=== PATIENT | male | born 1965 | race African-American/Black ===

== ENCOUNTER 2017-01-20 10:05 | Outpatient (CLI) | payer OTHER ==
[2017-01-20 11:32] LABS: #Eosinphils 0.4 thou/uL (0.0-0.7); #Lymphocytes 2.4 thou/uL (1.20-3.40); #Monocytes 0.3 thou/uL (0.11-0.59); #Neutrophils 2.3 thou/uL (1.40-6.50); %Basophils 0.2 % (0.0-1.0); %Eosinophils 6.9 % (0.0-10.0); %Lymphocytes 44.1 % (21.0-51.0); %Monocytes 6.1 % (0.0-10.0); Hematocrit 45.6 % (42.0-52.0); Mean Platelet Volume 7.8 fL (7.4-10.4); Red Blood Cell (RBC) Count 4.99 mill/uL (4.70-6.10); White Blood Cell (WBC) Count 5.5 thou/uL (4.8-10.8)
[2017-01-20 11:48] LABS: Anion Gap 16 mmol/L (10-20); BUN (Urea Nitrogen) 17 mg/dL (8.9-20.6); Calc. Creatinine Clearance 0 mL/min (70-130); Calcium 9.8 mg/dL (7.8-10.44); Carbon Dioxide 22 mmol/L (22-29); Chloride 104 mmol/L (98-107); Estimated GFR-MDRD 74
--- NOTE | 2017-01-20 12:34 | RAD ---
RADIOGRAPH CHEST 2 VIEWS: Date: 01/20/17 Time: 1109 hours HISTORY: 51-year-old male with chest pain. FINDINGS: There is no air space density, pulmonary edema, pleural effusion, pneumothorax, or cardiomegaly. IMPRESSION: No acute cardiopulmonary findings. mela [] POS: [facility]
== END 2017-01-20 10:06 | disposition home or self-care (01) ==
LOC: LABBT 10:05
PROVIDERS: ATTEND Orthopaedic Surgery Hand Surgery
DX: Z01.818 Encounter for other preprocedural examination (principal); G56.32 Lesion of radial nerve, left upper limb; G83.9 Paralytic syndrome, unspecified
CPT/HCPCS: 71020; 80048; 85025; 93005; 93010

== ENCOUNTER 2017-09-11 11:37 | Outpatient (CLI) | payer OTHER ==
--- NOTE | 2017-09-11 12:38 | RAD ---
TWO VIEW LEFT HIP: Indication: Left hip pain. FINDINGS: There is mild osteoarthritis in the left hip without fracture or dislocation. IMPRESSION: Mild left hip joint osteoarthritis. POS: [facility]
--- NOTE | 2017-09-11 12:46 | RAD ---
FRONTAL VIEW PELVIS: Clinical history: Hip pain. FINDINGS: There is bilateral hip joint osteoarthritis, which is symmetric appearing. There is no acute osseous abnormality. Symphysis pubis is maintained. No significant abnormality of the sacroiliac joints. Ther e are soft tissue calcifications overlying the pelvis. Prominent region of heterotopic density is seen along the right lateral pelvic soft tissues. IMPRESSION: 1. No acute osseous abnormality of the pelvis. 2. Osteoarthritis, symmetric appearing, mild in degree and not significantly changed from a prior exam. POS: [facility]
--- NOTE | 2017-09-11 14:16 | RAD ---
TWO VIEWS RIGHT HIP: Date: 09-11-17 Comparison: 03-23-06 History: Hip injury. FINDINGS: Two views right hip demonstrate development of an area of heterotopic bone compatible with myositis o ssificans. This is lateral and slightly superior to the right hip joint. No other acute abnormalities seen. 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 POS: [facility]
== END 2017-09-11 11:38 | disposition home or self-care (01) ==
LOC: RAD 11:37
PROVIDERS: ATTEND Psychiatry & Neurology Neurology
DX: Z02.71 Encounter for disability determination (principal); M16.0 Bilateral primary osteoarthritis of hip
CPT/HCPCS: 72170

== ENCOUNTER 2017-11-08 09:28 | Outpatient (CLI) | payer OTHER | END 2017-11-08 09:29 | disposition home or self-care (01) | LOC: BICRAD 09:28 | PROVIDERS: ATTEND Family Medicine | DX: M54.10 Radiculopathy, site unspecified (principal) | CPT/HCPCS: 72100 ==

== ENCOUNTER 2019-06-05 19:30 | Outpatient (CLI) | payer OTHER | END 2019-06-05 19:31 | disposition home or self-care (01) | LOC: SLEEPLAB 19:30 | PROVIDERS: ATTEND Family Medicine | DX: G47.9 Sleep disorder, unspecified (principal); R53.83 Other fatigue; R06.83 Snoring; F32.9 Major depressive disorder, single episode, unspecified; E11.9 Type 2 diabetes mellitus without complications; I10 Essential (primary) hypertension; G47.33 Obstructive sleep apnea (adult) (pediatric) | CPT/HCPCS: 95811 ==

== ENCOUNTER 2019-09-22 18:37 | Emergency (ER) | payer OTHER ==
[2019-09-22] MEDS ORDERED: Cyclobenzaprine 10 MG TAB ONE (19:38)
== END 2019-09-22 20:24 | disposition home or self-care (01) ==
LOC: ERS 18:37
DX: S29.011A Strain of muscle and tendon of front wall of thorax, initial encounter (principal); E11.9 Type 2 diabetes mellitus without complications; I10 Essential (primary) hypertension; F31.9 Bipolar disorder, unspecified; F17.210 Nicotine dependence, cigarettes, uncomplicated; Z79.84 Long term (current) use of oral hypoglycemic drugs; X50.0XXA Overexertion from strenuous movement or load, initial encounter
CPT/HCPCS: 36416; 93005

== ENCOUNTER 2020-06-17 09:07 | Outpatient (CLI) | payer OTHER ==
--- NOTE | 2020-06-17 09:45 | RAD ---
EXAM: 4 views of the left elbow HISTORY: Elbow pain COMPARISON: None FINDINGS: A small elbow effusion is seen. There is no evidence of acute fracture or dislocation. No significant degenerative changes are seen. Mild diffuse soft tissue swelling is present. IMPRESSION: Small elbow effusion without obvious fracture.
--- NOTE | 2020-06-17 10:06 | RAD ---
Exam:3 views right thumb HISTORY: Pain COMPARISON: None FINDINGS: Joint spaces are preserved. No fracture, cortical irregularity or periosteal reaction. IMPRESSION: No fracture.
== END 2020-06-17 09:08 | disposition home or self-care (01) ==
LOC: BICRAD 09:07
PROVIDERS: ATTEND Family Medicine
DX: M79.644 Pain in right finger(s) (principal); M25.522 Pain in left elbow; M25.422 Effusion, left elbow

== ENCOUNTER 2021-04-27 11:51 | Outpatient (CLI) | payer OTHER | END 2021-04-27 11:52 | disposition home or self-care (01) | LOC: BICRAD 11:51 | PROVIDERS: ATTEND Family Medicine | DX: Z01.818 Encounter for other preprocedural examination (principal) | CPT/HCPCS: 71046 ==

== ENCOUNTER 2021-05-20 11:30 | Inpatient (IN) | payer OTHER ==
[2021-05-25] MEDS ORDERED: Tranexamic Acid 1,000 MG/10 ML VIAL ONE (07:42)
[2021-05-25] MEDS ORDERED: Sodium Chloride 0.9% 100 ML ONE (07:43)
[2021-05-25] MEDS ORDERED: Vancomycin 1.5 GRAM/300 ML BAG 1.5 GM in Premix Bag 1 BAG IVPB SCH ×2 (07:45→20:00)
[2021-05-25] MEDS ORDERED: Midazolam HCl 2 mg/2 ml Vial ONE (07:58)
[2021-05-25] MEDS ORDERED: Fentanyl 100 MCG/2 ML VIAL ONE ×4 (07:58→12:08)
[2021-05-25] MEDS ORDERED: Bupivacaine PF 0.5% 30 ML VIAL ONE (09:09)
[2021-05-25] MEDS ORDERED: EPINEPHrine 1 MG/ML AMP ONE (09:09)
[2021-05-25] MEDS ORDERED: Fentanyl 100 MCG/2 ML VIAL IV PRN (09:21)
[2021-05-25] MEDS ORDERED: Bupivacaine 0.25% HCL 30 ML VIAL ONE (09:27)
[2021-05-25] MEDS ORDERED: traMADol HCl 50 MG TAB PO PRN ×2 (09:30)
[2021-05-25] MEDS ORDERED: Ondansetron PF 4 MG/2 ML Vial IVP PRN ×2 (09:30→11:34)
[2021-05-25] MEDS ORDERED: HYDROcodone/Acetaminophen 10/325 mg Tablet PO PRN (09:30)
[2021-05-25] MEDS ORDERED: Ropivacaine 0.2% 550 ML 550 ML NERVE BLCK SCH (09:30)
[2021-05-25] MEDS ORDERED: Zolpidem Tartrate 5 MG TAB PO PRN ×2 (09:30→11:34)
[2021-05-25] MEDS ORDERED: Promethazine HCl 25 MG/ML VIAL IM PRN ×3 (09:30→11:44)
[2021-05-25] MEDS ORDERED: ceFAZolin 2 GM/Dextrose 50 ML IVPB ONE (09:35)
[2021-05-25] MEDS ORDERED: Dexamethasone 20 MG/5 ML VIAL ONE (09:40)
[2021-05-25] MEDS ORDERED: Bupivacaine HCl 0.5%/Epinephrine 1:200,000/PF 30 ml Vial ONE (09:40)
[2021-05-25] MEDS ORDERED: Ondansetron PF 4 MG/2 ML Vial ONE (09:40)
[2021-05-25] MEDS ORDERED: Ketorolac Tromethamine 30 MG/ML VIAL ONE (09:40)
[2021-05-25] MEDS ORDERED: PROPOFOL 200 MG/20 ML VIAL ONE (09:40)
[2021-05-25] MEDS ORDERED: methylPREDNISolone Acetate 40 mg/ml Vial ONE (09:47)
[2021-05-25] MEDS ORDERED: Lidocaine 1% (PF) 30 ML VIAL ONE (09:51)
[2021-05-25] MEDS ORDERED: diphenhydrAMINE 25 MG CAP PO PRN (11:34)
[2021-05-25] MEDS ORDERED: Acetaminophen 325 MG TAB PO PRN (11:34)
[2021-05-25] MEDS ORDERED: Promethazine HCl 25 MG/ML VIAL IVPB PRN (11:44)
[2021-05-25] MEDS ORDERED: Ondansetron HCl/PF 4 MG/2 ML Vial IVP PRN (11:44)
[2021-05-25] MEDS ORDERED: Aspirin 81 mg Enteric Coated Tablet PO SCH (12:15)
[2021-05-25] MEDS ORDERED: HYDROmorphone 2 MG/ML VIAL ONE (12:35)
[2021-05-25] MEDS ORDERED: hydrALAZINE 20 MG/ML VIAL ONE ×2 (12:55→15:48)
[2021-05-25] MEDS ORDERED: Ketorolac Tromethamine 30 MG/ML VIAL IM SCH (14:00)
[2021-05-25] MEDS: Ketorolac Tromethamine 30 MG/ML VIAL IVP SCH ×2 (18:14→23:16)
[2021-05-25] MEDS: Sodium Chloride 0.9% 1,000 ML IV SCH ×2 (19:26→20:40)
[2021-05-25 19:44] VITALS: BMI 36.4
[2021-05-25] MEDS: HYDROcodone/Acetaminophen 10/325 mg Tablet PO PRN (20:38)
[2021-05-25] MEDS: Aspirin 81 mg Enteric Coated Tablet PO SCH (20:38)
[2021-05-25] MEDS: ceFAZolin 2 GM/Dextrose 50 ML 2 GM in Premix Bag 1 BAG IVPB SCH (20:39)
[2021-05-25] MEDS ORDERED: Dextrose 5% in Water 1,000 ML IV PRN (22:12)
[2021-05-25] MEDS ORDERED: Dextrose 50% Abboject 50 ML SYRINGE SLOW IVP PRN (22:12)
[2021-05-25] MEDS: HumaLOG 300 UNITS/3 ML VIAL SC PRN (23:17)
[2021-05-26] MEDS: ceFAZolin 2 GM/Dextrose 50 ML 2 GM in Premix Bag 1 BAG IVPB SCH (02:34)
[2021-05-26] MEDS: HYDROcodone/Acetaminophen 10/325 mg Tablet PO PRN ×4 (02:46→20:39)
[2021-05-26] MEDS: Sodium Chloride 0.9% 1,000 ML IV SCH ×2 (03:37→17:31)
[2021-05-26] MEDS: Ketorolac Tromethamine 30 MG/ML VIAL IVP SCH ×4 (05:43→17:20)
[2021-05-26 06:45] LABS: Hemoglobin 12.1 g/dL (14.0-18.0); Mean Corpuscular HGB CONC 33.5 g/dL (32.0-36.0); Mean Corpuscular Hemoglobin 30.2 pg (27.0-31.0); Mean Corpuscular Volume 90.2 fL (78.0-98.0); Platelet Count 225 thou/uL (130-400); RBC Distribution Width 13.5 % (11.5-14.5); Red Blood Cell (RBC) Count 4.02 mill/uL (4.70-6.10); White Blood Cell (WBC) Count 13.4 thou/uL (4.8-10.8)
[2021-05-26] MEDS: Multivitamin W/ Minerals 1 TAB PO SCH (09:06)
[2021-05-26] MEDS: Aspirin 81 mg Enteric Coated Tablet PO SCH ×2 (09:06→20:38)
[2021-05-26] MEDS: Senokot S 8.6-50 MG TAB PO SCH ×2 (09:06→20:38)
[2021-05-26] MEDS: Ferrous Gluconate 324 MG TAB PO SCH ×2 (09:06→17:19)
[2021-05-26] MEDS: Amlodipine 5 MG TAB PO SCH (09:17)
[2021-05-26] MEDS: Pregabalin 50 MG CAP PO SCH ×2 (09:17→20:40)
[2021-05-26 10:13] LABS: Anion Gap 16 mmol/L (10-20); BUN (Urea Nitrogen) 28 mg/dL (8.4-25.7); Calc. Creatinine Clearance 105 mL/min (70-130); Calcium 8.4 mg/dL (7.8-10.44); Carbon Dioxide 18 mmol/L (22-29); Chloride 104 mmol/L (98-107); Glucose 193 mg/dL (70-105); Potassium 4.2 mmol/L (3.5-5.1); Sodium 134 mmol/L (136-145)
[2021-05-26] MEDS: HumaLOG 300 UNITS/3 ML VIAL SC PRN ×3 (11:12→21:26)
[2021-05-26] MEDS ORDERED: Atorvastatin Calcium 40 MG TAB PO SCH (21:00)
[2021-05-26] MEDS ORDERED: Allopurinol 300 MG TAB PO SCH (21:00)
[2021-05-27] MEDS: Ketorolac Tromethamine 30 MG/ML VIAL IVP SCH ×2 (00:45→06:14)
[2021-05-27] MEDS: Sodium Chloride 0.9% 1,000 ML IV SCH (03:40)
[2021-05-27] MEDS: HYDROcodone/Acetaminophen 10/325 mg Tablet PO PRN ×2 (06:26→09:54)
[2021-05-27 07:17] LABS: Anion Gap 10 mmol/L (10-20); BUN (Urea Nitrogen) 27 mg/dL (8.4-25.7); Calc. Creatinine Clearance 119 mL/min (70-130); Calcium 8.3 mg/dL (7.8-10.44); Carbon Dioxide 26 mmol/L (22-29); Chloride 107 mmol/L (98-107); Glucose 130 mg/dL (70-105); Potassium 4.2 mmol/L (3.5-5.1); Sodium 139 mmol/L (136-145)
[2021-05-27 07:20] LABS: Hemoglobin 11.4 g/dL (14.0-18.0); Mean Corpuscular HGB CONC 32.8 g/dL (32.0-36.0); Mean Corpuscular Hemoglobin 29.9 pg (27.0-31.0); Mean Corpuscular Volume 91.3 fL (78.0-98.0); Mean Platelet Volume 8.3 fL (7.4-10.4); Platelet Count 211 thou/uL (130-400); RBC Distribution Width 13.6 % (11.5-14.5); Red Blood Cell (RBC) Count 3.82 mill/uL (4.70-6.10); White Blood Cell (WBC) Count 11.9 thou/uL (4.8-10.8)
[2021-05-27 08:31] VITALS: TEMP 97.7
[2021-05-27] MEDS: Senokot S 8.6-50 MG TAB PO SCH (09:52)
[2021-05-27] MEDS: Aspirin 81 mg Enteric Coated Tablet PO SCH (09:52)
[2021-05-27] MEDS: Multivitamin W/ Minerals 1 TAB PO SCH (09:53)
[2021-05-27] MEDS: Pregabalin 50 MG CAP PO SCH (09:53)
[2021-05-27] MEDS: Ferrous Gluconate 324 MG TAB PO SCH (09:54)
[2021-05-27] MEDS: Amlodipine 5 MG TAB PO SCH (09:54)
[2021-05-27 10:55] VITALS: BP 184/96
== END 2021-05-27 13:20 | disposition home or self-care (01) | DRG 470 ==
LOC: SURG A 05-25 06:54 → SURG B 05-25 17:40
PROVIDERS: ADMIT Orthopaedic Surgery; ATTEND Orthopaedic Surgery
PROC: 0SRC0J9 Replacement of Right Knee Joint with Synthetic Substitute, Cemented, Open Approach (ICD-10-PCS; principal; 2021-05-25)
PROC: 3E0U33Z Introduction of Anti-inflammatory into Joints, Percutaneous Approach (ICD-10-PCS; 2021-05-25)
PROC: 3E0U3BZ Introduction of Anesthetic Agent into Joints, Percutaneous Approach (ICD-10-PCS; 2021-05-25)
DX: M17.0 Bilateral primary osteoarthritis of knee (principal); N17.9 Acute kidney failure, unspecified; Z20.822 Contact with and (suspected) exposure to COVID-19; M25.761 Osteophyte, right knee; E11.9 Type 2 diabetes mellitus without complications; I10 Essential (primary) hypertension; M10.9 Gout, unspecified; Z79.84 Long term (current) use of oral hypoglycemic drugs; Z79.899 Other long term (current) drug therapy
CPT/HCPCS: 36415; 36416; 80048; 85027; A4306; C1713; C1776; J0171; J0360; J0690; J1100; J1170; J1815; J1885; J2001; J2250; J2405; J2704; J2795; J2920; J3010; J3370; J3490; J7050; S0020

== ENCOUNTER 2021-05-20 11:35 | Outpatient (CLI) | payer OTHER ==
[2021-05-21 09:12] LABS: SARS-CoV-2 PCR by NAA Not Detected (NotDetected)
== END 2021-05-20 11:36 | disposition home or self-care (01) ==
LOC: LABBT 11:35
PROVIDERS: ATTEND Orthopaedic Surgery
DX: Z01.812 Encounter for preprocedural laboratory examination (principal); M17.11 Unilateral primary osteoarthritis, right knee; Z20.822 Contact with and (suspected) exposure to COVID-19
CPT/HCPCS: 87081; U0003; U0005

== ENCOUNTER 2021-06-03 10:03 | Emergency (ER) | payer OTHER ==
[2021-06-03 12:23] LABS: #Eosinphils 0.3 thou/uL (0.0-0.7); #Lymphocytes 2.4 thou/uL (1.20-3.40); #Monocytes 0.6 thou/uL (0.11-0.59); #Neutrophils 5.8 thou/uL (1.40-6.50); %Basophils 0.5 % (0.0-1.0); %Lymphocytes 26.2 % (21.0-51.0); %Monocytes 6.4 % (0.0-10.0); %Neutrophils 63.8 % (42.0-75.0); Hemoglobin 12.9 g/dL (14.0-18.0); Mean Corpuscular HGB CONC 31.9 g/dL (32.0-36.0); Mean Corpuscular Hemoglobin 29.9 pg (27.0-31.0); Mean Corpuscular Volume 93.7 fL (78.0-98.0); Mean Platelet Volume 6.7 fL (7.4-10.4); Platelet Count 354 thou/uL (130-400); RBC Distribution Width 13.1 % (11.5-14.5)
[2021-06-03] MEDS ORDERED: Morphine 4 MG/ML VIAL ONE (12:26)
[2021-06-03] MEDS ORDERED: Ondansetron PF 4 MG/2 ML Vial ONE (12:26)
[2021-06-03 12:44] LABS: ALT (SGPT) 60 U/L (8-55); AST (SGOT) 38 U/L (5-34); Albumin 4.4 g/dL (3.5-5.0); Alkaline Phosphatase 141 U/L (40-110); Anion Gap 15 mmol/L (10-20); BUN (Urea Nitrogen) 30 mg/dL (8.4-25.7); Bilirubin, Total 0.8 mg/dL (0.2-1.2); Calc. Creatinine Clearance 0 mL/min (70-130); Calcium 10.1 mg/dL (7.8-10.44); Carbon Dioxide 25 mmol/L (22-29); Chloride 98 mmol/L (98-107); Globulin 4.2 g/dL (2.4-3.5); Glucose 124 mg/dL (70-105); Potassium 5.7 mmol/L (3.5-5.1); Protein, Total 8.6 g/dL (6.0-8.3); Sodium 132 mmol/L (136-145)
[2021-06-03 14:20] LABS: Potassium 4.7 mmol/L (3.5-5.1)
== END 2021-06-03 14:45 | disposition home or self-care (01) ==
LOC: ERS 10:03
DX: G89.18 Other acute postprocedural pain (principal); M25.561 Pain in right knee; I10 Essential (primary) hypertension; E11.9 Type 2 diabetes mellitus without complications; Z96.651 Presence of right artificial knee joint; Z87.891 Personal history of nicotine dependence; Z79.84 Long term (current) use of oral hypoglycemic drugs; Z79.899 Other long term (current) drug therapy
CPT/HCPCS: 36415; 80053; 85025; 85652; 86140; 93005; J2270; J2405

== ENCOUNTER 2021-12-13 12:14 | Outpatient (CLI) | payer OTHER | END 2021-12-13 12:15 | disposition home or self-care (01) | LOC: BICRAD 12:14 | PROVIDERS: ATTEND Family Medicine | DX: Z01.818 Encounter for other preprocedural examination (principal) | CPT/HCPCS: 71046 ==

== ENCOUNTER 2025-03-13 09:00 | Outpatient (CLI) | payer OTHER | END 2025-03-13 09:01 | disposition home or self-care (01) | LOC: BICRAD 09:00 | PROVIDERS: ATTEND Registered Nurse | DX: M47.816 Spondylosis without myelopathy or radiculopathy, lumbar region (principal); M43.16 Spondylolisthesis, lumbar region | CPT/HCPCS: 72120 ==